=== PATIENT | female | born 1960 | race Caucasian/White ===

== ENCOUNTER → 2017-05-15 | Outpatient (CLI) | payer OTHER ==
[~2017-05-15] MED LIST: ADVAIR 2501 DISK W/D PO; ALLERGY RELIE15.8 ML; ALPRAZOLAM0.25 MG PO; CELEBREX PO; CLARISPRAY9.9 ML INH; COMBIVENT INH14.7 GM INH; DUEXIS 800-26.1 EACH PO; EFFEXOR XR PO; LISINOPRIL PO; METFORMIN PO; NASONEX17 GM; PANTOPRAZOLE SO40 MG PO; PHENERGAN PO; PROAIR HFA8.5 GM INH; QVAR7.3 G1 INH; SEROQUEL50 M1 PO; SERZONE PO; SINGULAIR PO; SYNTHROID PO; ZYRTEC PO
--- NOTE | ~2017-05-15 | US67 ---
[facility] A Service of [facility] RADIOLOGY TEXT RESULTS PATIENT: GRANT KHALIL LOCATION: [facility] : 64 UNIT #: [id number] AGE: [address]: Alcon Sosa MD SEX: F ORDER DR: [id number] [facility] [address] [place], [place] [address] [id number] O MR#: [id number] Acc #: [id number] NAME: GRANT KHALIL : 1960 SEX: F STUDY DATE/TIME: 05/15/2017 8:19 UNIT: [facility] ROOM: STUDY DESCRIPTION: Gallbladder Attending Physician: Alcon Sosa M.D. Referring Physician: Alcon Sosa M.D. Ordering Physician: Alcon Sosa M.D. Primary Care Physician: Alcon Sosa M.D. MEDICAL IMAGING REPORT This report is preliminary unless electronic signature is present EXAM Gallbladder ultrasound. INDICATIONS 57-year-old female with right upper quadrant pain for several months. History of lap-band surgery 2004 and hypertension. TECHNIQUE Sonographic imaging of the right upper quadrant was performed. No comparisons. FINDINGS The liver is enlarged measuring 21 cm long axis and there is fatty infiltration of the liver. No ascites, focal liver mass or intrahepatic ductal dilatation. The pancreas to the extent visualized is unremarkable. The right kidney is nonobstructed measures 11.2 cm long axis. The gallbladder was sonographically unremarkable. Extrahepatic common bile duct measures 4-5 mm. IMPRESSION 1. Hepatomegaly with fatty infiltration of the liver. 2. Limited evaluation of the pancreas. 3. Otherwise negative. Dictated by... Flako Franks M.D. THIS IS AN ELECTRONICALLY VERIFIED REPORT Flako Franks M.D. at 05/15/2017 4:09 PM Sha TD: 05/15/2017 13:00 JOB #: [id number] [facility] A Service of [facility] RADIOLOGY TEXT RESULTS PATIENT: GRANT KHALIL LOCATION: [facility] : 64 UNIT #: [id number] AGE: [address]: Alcon Sosa MD SEX: F ORDER DR: MEDICAL IMAGING REPORT Page 1 of 1 COPY
== END | disposition home or self-care (01) ==
LOC: CWCC 08:02
DX: R10.0 Acute abdomen (principal); K76.0 Fatty (change of) liver, not elsewhere classified
CPT/HCPCS: 76705

== ENCOUNTER → 2017-06-12 | Outpatient (CLI) | payer OTHER ==
--- NOTE | ~2017-06-12 | NM22 ---
[facility] A Service of [facility] RADIOLOGY TEXT RESULTS PATIENT: GRANT KHALIL LOCATION: [facility] : 64 UNIT #: [id number] AGE: [address]: Alcon Sosa MD SEX: F ORDER DR: [id number] [facility] [address] [place], [place] [address] [id number] O MR#: [id number] Acc #: [id number] NAME: GRANT KHALIL : 1960 SEX: F STUDY DATE/TIME: 06/12/2017 9:42 UNIT: [facility] ROOM: STUDY DESCRIPTION: NM Hepatobiliary W GB Pharm Attending Physician: Alcon Sosa M.D. Referring Physician: Alcon Sosa M.D. Ordering Physician: Alcon Sosa M.D. Primary Care Physician: Alcon Sosa M.D. MEDICAL IMAGING REPORT This report is preliminary unless electronic signature is present EXAM HIDA scan with Kinevac CCK 06/12/2017 HISTORY Right upper quadrant abdominal pain and abdominal bloating with belching. Symptoms since September 2016 FINDINGS The patient received an intravenous injection of 5.53 mCi of technetium 99m tagged Choletec for hepatobiliary imaging. One hour following the injection of the radiopharmaceutical the patient received an intravenous injection of 2.6 mcg of Kinevac. There is homogeneous distribution of the radiotracer throughout the liver. Gallbladder activity was seen by 15 minutes postinjection of the radiopharmaceutical. Following Kinevac injection the gallbladder ejection fraction was 80.5% (normal is greater than 30%). IMPRESSION Normal HIDA scan with gallbladder ejection fraction of 80.5%. Dictated by... Leland Hines M.D. THIS IS AN ELECTRONICALLY VERIFIED REPORT Leland Hines M.D. at 06/15/2017 7:33 AM CARSON/himanshu TD: 06/13/2017 04:24 JOB #: [id number] MEDICAL IMAGING REPORT Page 1 of 1 COPY
== END | disposition home or self-care (01) ==
LOC: CNUC 05-29 09:00
DX: R10.11 Right upper quadrant pain (principal)
CPT/HCPCS: 78227; A9537; J2805